=== PATIENT | male | born 1985 | race Caucasian/White ===

== ENCOUNTER 2024-04-26 10:32 | Emergency (ER) | payer OTHER, SELFPAY ==
[2024-04-26 10:43] VITALS: BP 146/82; PULSE 100; RESP 18; TEMP 35.8; O2SAT 97; BMI 35.0
--- NOTE | 2024-04-26 12:13 | ED_ITS ---
HPI - General Adult General Date Seen: 04/26/24 Chief complaint: Back Injury/Pain Stated complaint: low back pain Time Seen by Provider: 04/26/24 12:12 History of Present Illness HPI narrative: 38-year-old male presents to the ER today for low back and left leg pain. He has a past medical history of low back problems dating back to about age 20. He had had a previous lumbar disc herniation and required had laminectomy done at [facility] about 3 or 4 years ago. Laminectomy was at L 4-5, he believes. He re-injured his back about 5 or 6 weeks ago. Ever since then he has been having pain in his low back that radiates down his left leg to the back of his left knee and sometimes the back of his left calf. He has been trying to manage the pain with [id number] Tylenol. He has been seeing a chiropractor but just has not been getting better. After about 4 weeks of therapy like this, his chiropractor told him that he really should see his doctor and get an MRI. His employer recently changed health insurance. His old primary care provider is now out of network so he does not currently have a primary care. He is noting increasingly worsening pain in his back and left leg that makes it almost impossible for him to complete his ADLs. He is not able to tolerate the pain anymore since it is getting worse. He is not having any new weakness in the leg. Bowel and bladder function are normal. No fever or chills. He has no history of immunosuppression, diabetes. No anticoagulation. He came to the ER today because he simply cannot wait a few weeks to establish an appointment with a primary care provider. He wants us to get the MRI done today, if possible. Related Data Previous Rx's ?Medication ?Instructions ?Recorded methylprednisolone 4 mg tablets in See Rx Instructions PO .COMPLEX 04/26/24 a dose pack (Medrol (Sundeep)) #21 ea oxycodone 5 mg tablet,oral ONLY 5 mg PO Q4-6H PRN pain #14 ea 04/26/24 (not feeding tubes) Allergies Allergy/AdvReac Type Severity Reaction Status Date / Time ibuprofen Allergy Intermediate Verified 04/26/24 10:48 naproxen [From Aleve] Allergy Intermediate Verified 04/26/24 10:48 [facility] Surgical History (Updated 04/26/24 @ 13:06 by Sadia Morel RN) History of laminectomy ?Z98.890 - Other specified postprocedural states (ICD-10) Social History Smoking Status: Never smoker How often do you have a drink containing alcohol: never AUDIT-C Alcohol total score: 0 Non-prescribed substance use: denies use Exam Narrative: Exam Narrative: Constitutional: Appears well-developed and well-nourished. Polite. Non-toxic appearing. HENT: Head: Atraumatic. No signs of injury. Nose: No nasal discharge. Mouth/Throat: Mucous membranes are moist. Pharynx is normal. Tonsils symmetric. Uvula midline. Airway patent. Eyes: Conjunctivae normal and EOM are normal. Pupils are equal, round, and reactive to light. Right eye exhibits no discharge. Left eye exhibits no discharge. No icterus. Neck: Normal range of motion. Neck supple. No adenopathy. No stridor. Cardiovascular: Normal rate and regular rhythm. No murmur heard. No murmurs, rubs, or gallops. Brisk capillary refill Pulmonary/Chest: Effort normal. No stridor. No respiratory distress. No wheezes.No rhonchi. No rales. No retractions. Abdominal: Soft. Bowel sounds are normal. No distension. No mass. There is no tenderness. There is no rebound and no guarding. Musculoskeletal: Normal range of motion. No edema. No tenderness. No deformity. Lumbar spine-no bruising. No redness. No midline step-off. Mild tenderness over the lower lumbar spine and left lumbar paraspinous muscles. Pelvis is stable. Neurological: Alert. Normal strength. No cranial nerve deficit or sensory deficit. Coordination normal. GCS eye subscore is 4. GCS verbal subscore is 5. GCS motor subscore is 6. Sensory: Normal light touch sensation bilaterally on the anteromedial thigh (L3), medial malleolus (L4), dorsal first web space (L5), lateral malleolus (S1). Strength: 5/5 strength hip flexors (L3) on the rig ht and left (allowing for pain) 5/5 strength in the quadriceps (L4) on t he right and left 5/5 strength in the tibialis anterior 5/5 strength in the EHL (L5) on the righ t and left 5/5 strength in the gastrocnemius (S1) o n the right and left 5/5 strength in the hamstring on the rig ht and left DTRs: symmetric in the patella (2/4) Negative straight leg raise bilaterally, but lifting his left leg does cause pain in his left low back and into his left hip, but not all the way down to the foot. Skin: Skin is warm. No rash noted. Const: Vital Signs, click to edit/add: Vital Signs - 24 hr 04/26/24 10:43 Temperature 96.4 F L Pulse Rate [Pulse Oximeter] 100 Respiratory Rate 18 Blood Pressure [Ri ght Upper Arm] 146/82 H Pulse Oximetry 97 Oxygen Delivery Me thod Room Air Course Vital Signs Vital signs: Initial Vital Signs Temperature 96.4 F L 04/26/24 10:43 Temperature Source Temporal Artery Scan 04/26/24 10:43 Pulse Rate 100 04/26/24 10:43 Respiratory Rate 18 04/26/24 10:43 Blood Pressure 146/82 H 04/26/24 10:43 Blood Pressure Mean 103 04/26/24 10:43 Blood Pressure Position Sitting 04/26/24 10:43 Pulse Oximetry 97 04/26/24 10:43 Oxygen Delivery Method Room Air 04/26/24 10:43 Vital Signs Temperature 96.4 F L 04/26/24 10:43 Pulse Rate 100 04/26/24 10:43 Respiratory Rate 18 04/26/24 10:43 Blood Pressure 146/82 H 04/26/24 10:43 Pulse Oximetry 97 04/26/24 10:43 Oxygen Delivery Method Room Air 04/26/24 10:43 Temperature 96.4 F L 04/26/24 10:43 Pulse Rate 100 04/26/24 10:43 Respiratory Rate 18 04/26/24 10:43 Blood Pressure 146/82 H 04/26/24 10:43 Pulse Oximetry 97 04/26/24 10:43 Oxygen Delivery Method Room Air 04/26/24 10:43 Medical Decision Making MDM Narrative Medical decision making narrative: This patient presented with back pain radiating down his left leg.. Broad differential considered. The patient did not sustain any trauma, therefore x-r ays are not necessary due to the low likelihood of fracture or subluxation The patient has not had a fever, saddle/perineal anesthesia, bilateral foot numbness, or bowel or bladder dysfunction. There is no clinical evidence of cauda equina syndrome, discitis, spinal/epidural space hematoma or epidural abscess. Patient does not have any red flags to suggest immediate neurosurgical emergency. However, symptoms are highly suggestive for left lumbar radiculopathy. He has been trying to manage this conservatively at home for the past 5 or 6 weeks with lqhj-qro-neabyhy meds, rest, chiropractic support but he is steadily getting worse. He does not currently have primary care's which is what brought him to the ER today, desiring MRI. Discussed with the patient that MRI may not be covered by his insurance if we do it here in the ER today. However because of severity of his pain and the amount that it limits his ADLs, I do think it is in the patient's best interest to expedite the MRI. We were able to obtain the MRI while he is here in the ER this afternoon. It does confirm a left L5-S1 disc with severe lateral recess stenosis which would correlate with his area of pain. Patient will follow-up with the [facility]. He will call the clinic Monday morning to arrange is appointment. We will also start him on a Medrol Dosepak. Prescription for oxycodone provided. Opiate precautions reviewed. Ice or heat to the back and stretching exercises. No heavy lifting, bending or twisting. Return if increasing pain, numbness, weakness, or bowel or bladder dysfunction. Return precautions reviewed and questions answered. Imaging Data MRI Lumbar Spine: Attestation: I have reviewed the pertinent imaging results. Radiologist's impression: Impression: 1. No acute osseous abnormality. Normal alignment. Chronic left hemilaminectomy changes at L4-5. 2. At L4-5, there is a mild disc bulge and small left paracentral disc protrusion that results in mild left subarticular recess stenosis. Mild neural foramen narrowing bilaterally. 3. At L5-S1, disc bulge and left paracentral disc protrusion impinges the traversing left S1 nerve roots and results in severe left subarticular recess stenosis. Discharge Plan Discharge Clinical Impression: Left lumbar radiculopathy Patient Disposition: Home, Self-Care Condition: Stable Instructions: Lumbar Radiculopathy (ED), Back Pain (ED) Additional Instructions: Please come back to the ER right away if you have any problems especially worsening or uncontrolled pain, worsening weakness in your legs, trouble with the function of your bladder or bowels, high fever, or if you have any other problems. Please follow-up with the [facility] next week. You need to call on Monday morning at 8-9 a.m. to schedule an appointment. Call [phone] and ask the orthopedic clinical team lead to schedule with the spine clinic. You can tell them that you were in the ER today with an MRI confirming a bulging disc in your low back. Use caution with prescription pain killers because they cause drowsiness, dizziness, constipation, and can be addictive. Use the steroid medicines for the next few days and this may help reduce the swelling and pain in your disc. Prescriptions: New oxycodone 5 mg tablet, oral only 5 mg PO Q4-6H PRN (Reason: pain) Qty: 14 0RF methylprednisolone [Medrol (Sundeep)] 4 mg tablets,dose pack See Rx Instructions .ROUTE .COMPLEX Qty: 21 0RF Rx Instructions: for 6 days Follow Up/Referrals: Provider,Not a Local [Primary Care Provider] - Stand Alone Forms: [employer] Info Instructions
--- NOTE | 2024-04-26 12:28 | CRLHL7_ITS ---
For Patients: As a result of the Century Cures Act, medical imaging exams and procedure reports are released immediately into your electronic medical record. You may view this report before your referring provider. If you have questions, please contact your health care provider. Indication: LOW BACK PAIN, LEFT LEG RADICULOPATHY, SURGERY 6 YEAS AGO Technique: Noncontrast sagittal and axial T1, T2, and sagittal STIR sequences are provided. Postcontrast sagittal and axial T1 weighted images were obtained after administration of 20 cc Dot are IV contrast. Comparison: No prior studies available for comparison at this institution. Findings: There are 5 lumbar type vertebral bodies. No aggressive osseous lesions. No prevertebral or paraspinal edema. Moderate interspace narrowing at L4-5. Disc desiccation at L4-5 and L5-S1. The conus medullaris is normal in signal and location. Modic type 2 endplate degenerative changes at L4-5 on the right side. No intradural pathology. T12-L1: No significant spinal canal stenosis or neural foramina narrowing. L1-2: No significant spinal canal stenosis or neural foraminal narrowing. L2-3: No significant spinal canal stenosis or neural foraminal narrowing. L3-4: No significant spinal canal stenosis or neural foramen narrowing. L4-5: Moderate disc height loss. Left hemilaminectomy postoperative changes. Mild disc bulge and left paracentral disc protrusion that results in mild left subarticular recess stenosis. Mild bilateral neural foraminal narrowing. L5-S1: Disc desiccation. Mild disc bulge and left paracentral disc protrusion and results in severe left subarticular recess stenosis with impingement of the traversing left S1 nerve roots. No neural foramen narrowing. Impression: 1. No acute osseous abnormality. Normal alignment. Chronic left hemilaminectomy changes at L4-5. 2. At L4-5, there is a mild disc bulge and small left paracentral disc protrusion that results in mild left subarticular recess stenosis. Mild neural foramen narrowing bilaterally. 3. At L5-S1, disc bulge and left paracentral disc protrusion impinges the traversing left S1 nerve roots and results in severe left subarticular recess stenosis. Dictated by Vinny Millard MD @ 04/26/2024 1:38:27 PM (Electronically Signed)
== END 2024-04-26 14:40 | disposition home or self-care (01) ==
PROVIDERS: Emergency Provider Emergency Medicine
DX: M47.26 Other spondylosis with radiculopathy, lumbar region (principal)
CPT/HCPCS: 72158; 99283; 99284; A9575